=== PATIENT | female | born 1990 | race Caucasian/White ===

== ENCOUNTER 2021-05-09 06:23 | Inpatient (IN) ==
[2021-05-09] MEDS ORDERED: ANCEF 1 GRAM IV PREMIX* 0 G/0 ML BAG IV ONE (06:41)
[2021-05-09] MEDS ORDERED: LR 1,000 ML IV 1,000 ML IV ONE ×3 (06:41→10:00)
[2021-05-09] MEDS ORDERED: ProvayBLUE 0.5% ONE (06:46)
[2021-05-09] MEDS ORDERED: BETADINE SOLN ONE (06:47)
[2021-05-09 06:58] VITALS: BMI 35.4
[2021-05-09] MEDS ORDERED: BRIDION ONE (07:26)
[2021-05-09] MEDS ORDERED: OFIRMEV IV 1000 MG VIAL 1,000 MG/100 ML VIAL IV ONE (07:27)
[2021-05-09] MEDS ORDERED: PEPCID 20 MG IV PREMIX* 50 ML IV ONE (07:27)
[2021-05-09] MEDS ORDERED: DILAUDID INJ ONE (07:27)
[2021-05-09] MEDS ORDERED: FENTANYL VIAL INJ 100 mcg ONE (07:27)
[2021-05-09] MEDS ORDERED: ZEMURON 50 MG VIAL ONE (07:28)
[2021-05-09] MEDS ORDERED: DECADRON INJ ONE (07:28)
[2021-05-09] MEDS ORDERED: TORADOL 30 MG VIAL ONE (07:28)
[2021-05-09] MEDS ORDERED: ANCEF 1 GRAM IV PREMIX* 1 G/50 ML BAG IV ONE (07:37)
[2021-05-09 08:00] LABS: SERUM PREGNANCY TEST, QUAL NEGATIVE <10 mIU/mL
[2021-05-09] MEDS ORDERED: VERSED ONE (08:03)
[2021-05-09] MEDS ORDERED: KETALAR ONE (08:03)
[2021-05-09] MEDS ORDERED: ULTANE GAS IN ONE (08:03)
[2021-05-09] MEDS ORDERED: XYLOCAINE 2 % (PLAIN) ONE (08:03)
[2021-05-09] MEDS ORDERED: ZOFRAN INJ 4 MG VIAL ONE (08:03)
[2021-05-09] MEDS ORDERED: DIPRIVAN VIAL ONE (08:03)
[2021-05-09] MEDS ORDERED: LACRI-LUBE S.O.P. ONE (08:03)
[2021-05-09] MEDS ORDERED: ROBINUL ONE (08:03)
[2021-05-09 08:34] LABS: APPEARANCE,URINE CLEAR (CLEAR); BILIRUBIN,URINE NEGATIVE (NEGATIVE); BLOOD/HEMOGLOBIN,URINE NEGATIVE (NEGATIVE); COLOR,URINE YELLOW (YELLOW); GLUCOSE, URINE NEGATIVE (NEGATIVE); KETONES,URINE NEGATIVE (NEGATIVE); LEUKOCYTE ESTERASE ,URINE NEGATIVE (NEGATIVE); NITRITES,URINE NEGATIVE (NEGATIVE); PROTEIN,URINE 2+ (NEGATIVE); UROBILINOGEN,URINE NORMAL (NORMAL)
[2021-05-09 08:45] LABS: AMORPHOUS SEDIMENT,UR TRACE /HPF (NEGATIVE); BACTERIA,URINE NEGATIVE /HPF (NEGATIVE); MUCUS,URINE FEW /HPF (NEGATIVE); SQUAMOUS EPITHELIAL CELL,UR RARE /HPF (NEGATIVE)
[2021-05-09] MEDS ORDERED: BARHEMSYS INJ IVP PRN (09:05)
[2021-05-09] MEDS ORDERED: PHENERGAN INJ 25 MG IM PRN ×2 (09:05→10:21)
[2021-05-09] MEDS ORDERED: BENADRYL INJ 50 MG VIAL IVP PRN ×2 (09:05→10:17)
[2021-05-09] MEDS ORDERED: DILAUDID INJ IVP PRN (09:05)
[2021-05-09] MEDS ORDERED: TORADOL 30 MG VIAL IVP PRN (10:17)
[2021-05-09] MEDS ORDERED: ZOFRAN INJ 4 MG VIAL IVP PRN (10:23)
[2021-05-09] MEDS ORDERED: NS IRRIGATION* 1,000 ML ONE (10:30)
[2021-05-09] MEDS ORDERED: D5 1/2 NS 1,000 ML 1,000 ML IV SCH (11:00)
--- OUTSIDE RECORDS SUMMARY | 2021-05-09 11:11 | XMS | Continuity of Care Document ---
:1990 Author Name Plasterer Helper, System Address Unavailable Unavailable , Care Team Providers Name Role Phone No, PCP Unavailable Unavailable Sal Nava, Cole Lang Unavailable Vigil Unavailable Unavailable Unavailable Unavailable Problems Name Dates Details Abortions/Miscarriages Comments: 0. Status: Active Anxiety Disorder Status: Active Delivery Mode Comments: c-sectionl argest baby 6 lb 2 oz Status: Active Endometriosis (N80.9, 617.9) Comments: S he has had 2 and a long hx of endometriosis. We attempted to try Lupron but could not get her approved for this drug and now she is requesting an hysterectomy/BSO through a [facility]. The risk/bene fits have been reviewed to include but not limited to bowel/bladder and pelvic organ injury. We are planning on 6 months without E2 replacement to aid with endometriosis control laurent or to replacement. We will give add-back tx during the mean-time. Status: Active High blood pressure Status: Active Hypercholesterolemia Status: Active Living Children (Number Of) Comments: 2. Status: Active Migraine Headache Status: Active Non-Hodgkin lymphoma in remission (C85.90, 202.80) Status: Active Other disease, cancer, significant illness Status: Active Pelvic pain in female (R10.2, 625.9) Sta tus: Active Pregnancies () Comments: 2. Status: Active Comments: 1. 36 w 6 d Status: Active Screening mammogram, encounter for (Emily med from Encounter for screening mammogram for malignant neoplasm of breast) (Z12.31, V76.12) Status: Active Term Comments: 1. Status: Active Medications Name Dates Details Citalopram Hydrobromide 20 MG Oral Tablet Active daily (20 MG) hydroCHLOROthiazide 25 MG Oral Tablet Ac tive daily (25 MG) Pantoprazole Sodium 20 MG Oral Tablet Delayed Release Active daily (20 MG) Singulair 10 MG Oral Tablet Active daily (10 MG) Lupron Depot (1-Month) 3.75 MG Intramusc ular Kit 1 (one) Kit once monthly for 30 days Quantity: 1 Kit Refills: 5 Ordered:04-May-2021 Start : 01-Mar-2021 End : 04-May-2021 Inactive Lupron Depot (3-Month) 11.25 MG Intramuscular Kit 1 (one) Kit one time dose for 1 days Quantity: 1 Kit Refills: 1 Ordered:04-May-2021 Start : 22-Feb-2021 End : 04-May-2021 Inactive Norethindrone Acetate 5 MG Oral Tablet 1 (one) Tablet daily for 90 days Quantity: 90 {Tablet} Refills: 1 Ordered:04-May-2021 Start : 22-Feb-2021 End : 04-May-2021 Inactive Allergies and Adverse Reactions Name Dates Details No Known Drug Allergies (Allergy) Onset: 17-Feb-2021 Status : Active Procedures Procedure Dates Details BLOOD DRAW, VENIPUNCTURE ([id number]) Date: 02-May-2021 Complet ed 02-May-2021 ([id number]) Section - 2 Completed Gallbladder Surgery - Laparoscopic Compl eted Pap Smear Completed Comments: Normal. Ju 2020 Tubal Ligation Completed Family History Unknown Family Member Name Dates Details Asthma Comments: Daughter. Status: Active Diabetes Mellitus Comments: Mother. Status: Active Heart Disease Comments: Father. Status: Active Heart disease in male family member before age 55 Status: Active Hypercholesterolemia Comments: Father. M other. Status: Active Hypertension Comments: Father. Mo ther. Status: Active Migraine Headache Comments: Mother. Status: Active Severe allergy Comments: Daughter. Status: Active Social History Name Dates Details Caffeine use: Coffee. Carbonated beverages. 3 servings/day. Status: Active Exercise: Inactive. Status: Active No alcohol use Status: Active No drug use Status: Active Seat Belt Use: Always uses seat belts. S tatus: Active Tobacco / smoke exposure: None. Status: Active Vital Signs Date Test Result Details :19 Body temperature 98 f Comments: Meth od: Oral Heart Rate 90 /min Comments: Pattern: R egular Respiratory rate 20 /min Comments: Pattern: U nlabored O2 SAT 98 % Comments: Room air Systolic blood pressure 129 mm[Hg] Comments: Patien t Position: Sitting; Cuff Location: Left Arm; Cuff Size: Standard Diastolic blood pressure 75 mm[Hg] Comments: Patie nt Position: Sitting; Cuff Location: Left Arm; Cuff Size: Standard Weight 200 lb Body height 63 in Body mass index (BMI) [Ratio] 35.43 kg/m2 Body surface area Derived from formula 1.93 m2 :04 Body temperature 97.6 f Comments: Meth od: Oral Heart Rate 76 /min Comments: Pattern: R egular Respiratory rate 20 /min Comments: Pattern: U nlabored O2 SAT 98 % Comments: Room air Systolic blood pressure 124 mm[Hg] Comments: Patien t Position: Sitting; Cuff Location: Left Arm; Cuff Size: Standard Diastolic blood pressure 73 mm[Hg] Comments: Patie nt Position: Sitting; Cuff Location: Left Arm; Cuff Size: Standard Weight 198.125 lb Body height 63 in Body mass index (BMI) [Ratio] 35.10 kg/m2 Body surface area Derived from formula 1.93 m2 :30 Body temperature 98.2 f Comments: Metho d: Oral Heart Rate 81 /min Comments: Pattern: R egular Respiratory rate 20 /min Comments: Pattern: U nlabored O2 SAT 99 % Comments: Room air Systolic blood pressure 129 mm[Hg] Comments: Patien t Position: Sitting; Cuff Location: Left Arm; Cuff Size: Standard Diastolic blood pressure 82 mm[Hg] Comments: Patie nt Position: Sitting; Cuff Location: Left Arm; Cuff Size: Standard Weight 199 lb Body height 63 in Body mass index (BMI) [Ratio] 35.25 kg/m2 Body surface area Derived from formula 1.93 m2 Results Date Description Value Details No Result Information Available Plan of Care Name Dates Details Instructions Uterus Removal, Abdominal (Hysterectomy) *: abdominal hysterectomy Start: 04-May-2021 Instruction Type: Patient Education Indication: Pelvic pain in female Laparoscopy for Chronic Pelvic Pain: diagnostic laparoscopy Start: 22-Feb-2021 Instruction Type: Patient Education Indication: Pelvic pain in female Endometriosis: endometriosis Start: 17-Feb-2021 Instructio n Type: Patient Education Indication: Pelvic pain in female Planned Observations METABOLIC PANEL, COMPREHENSIVE ([id number])Indication: Endo metriosis On: :51 Request CBC, PLATELETS & AUT DIFF ([id number])Indication: Endometriosis O n: :51 Request Planned Procedures OOPHORECTOMY, BILATERAL ([id number])By: September On: 021 Intent TOTAL ABDOMINAL HYSTERECTOMY (CORPUS AND CERVIX), WITH OR On : 04-May-2021 Intent WITHOUT REMOVAL OF TUBE(S), WITH OR WITHOUT REMOVAL OF OVARY(S); ([id number])By: YaritzaSeptember SCREENING MAMMOGRAPHY OF BOTH BREASTS ([id number])By: Mirella Huang Sr n: 17-Feb-2021 Intent Cole Lang Instructions Name Dates Details Follow MineWhat Start: 04-May-2021 Instruction Type: P atient Education Indication: Pelvic pain in female How to Access Health Information Online using Patient Portal and [employer]rd [employer] Apps Start: 04-May-2021 Instruction Type: Patient Education Indication: Pelvic pain in female Verified Opioid Agreement Start: 22-Feb-2021 Instruction T ype: Provider Instructions for Treatment Indication: Pelvic pain in female Follow MineWhat Start: 22-Feb-2021 Instruction Type: P atient Education Indication: Pelvic pain in female How to Access Health Information Online using Patient Portal and [employer] Apps Start: 22-Feb-2021 Instruction Type: Patient Education Indication: Pelvic pain in female Verified Opioid Agreement Start: 17-Feb-2021 Instruction T ype: Provider Instructions for Treatment Indication: Pelvic pain in female Follow MineWhat Start: 17-Feb-2021 Instruction Type: P atient Education Indication: Pelvic pain in female How to Access Health Information Online using Patient Portal and [employer] Apps Start: 17-Feb-2021 Instruction Type: Patient Education Indication: Pelvic pain in female Encounters Review On: 09-May-2021 10:59 [facility] Office Visit On: 04-May-2021 13:00 Encounter Diagnosis: Endometriosis, Pelvic pain in fem dorie End: 04-May-2021 13:52 [facility] Nurse Ordered Procedures/Labs On: 04-May-2021 13:00 Encounter Diagnosis: Endometriosis End: 04-May-2021 14 :02 [facility] Nurse Visit On: 02-May-2021 9:00 Encounter Diagnosis: Endometriosis End: 03-May-2021 15 :14 [facility] Prescribed On: 01-Mar-2021 8:59 Encounter Diagnosis: Endometriosis End: 01-Mar-2021 9: 10 [facility] Office Visit On: 22-Feb-2021 10:00 Encounter Diagnosis: Pelvic pain in female, Endometrio sis End: 22-Feb-2021 10:40 [facility] Office Visit On: 17-Feb-2021 10:00 Encounter Diagnosis: Pelvic pain in fema le, Screening mammogram, encounter for (Renamed from Encounter for screening mammogram for malignant neoplasm of breast), Non-Hodgkin lymphoma in remission End: 17-Feb-2021 11:11 [facility] Payers [employer] of [place]; a guarantor
[2021-05-09] MEDS: LR 1,000 ML IV 1,000 ML IV SCH ×3 (12:20→22:22)
[2021-05-09] MEDS: TORADOL 30 MG VIAL IVP SCH ×3 (12:34→23:18)
[2021-05-09] MEDS: ZOFRAN INJ 4 MG VIAL IVP PRN (19:28)
[2021-05-09] MEDS: PERCOCET TAB 5/325 MG PO PRN (19:28)
[2021-05-10] MEDS: PERCOCET TAB 5/325 MG PO PRN ×2 (01:52→21:50)
[2021-05-10] MEDS: LR 1,000 ML IV 1,000 ML IV SCH ×2 (04:40→11:11)
[2021-05-10] MEDS: TORADOL 30 MG VIAL IVP SCH (05:16)
[2021-05-10 06:18] LABS: BASOPHILS % (AUTO) 0.3 % (0.2-1.0); HEMATOCRIT 37.2 % (36.0-47.0); HEMOGLOBIN 12.7 g/dL (12.0-16.0); LYMPHOCYTES # (AUTO) 1.5 X10^3/uL (1.3-2.9); LYMPHOCYTES % (AUTO) 9.9 % (21.0-51.0); MEAN CORPUSCULAR HEMOGLOBIN 27.8 pg (27.0-34.0); MEAN CORPUSCULAR HGB CONC 34.2 g/dL (33.0-35.0); MEAN CORPUSCULAR VOLUME 81.2 fL (80.0-100.0); MEAN PLATELET VOLUME 8.1 fL (7.4-11.0); MONOCYTES # (AUTO) 1.2 x10^3/uL (0.3-0.8); MONOCYTES % (AUTO) 7.9 % (0.0-13.0); NEUTROPHILS # (AUTO) 12.6 x10^3/uL (2.2-4.8); NEUTROPHILS % (AUTO) 81.9 % (42.0-75.0); PLATELET COUNT 268 X10^3/uL (150.0-450.0); RED BLOOD COUNT 4.58 X10^6/uL (3.5-5.4); RED CELL DISTRIBUTION WIDTH 13.9 % (11.6-16.5); WHITE BLOOD COUNT 15.4 X10^3/uL (3.6-10.0)
[2021-05-10 06:27] LABS: BLOOD UREA NITROGEN 19 mg/dL (7-18); CALCIUM 8.2 mg/dL (8.5-10.1); CARBON DIOXIDE 28.5 mmol/L (21-32); CHLORIDE 104 mmol/L (98-107); CREATININE 1.95 mg/dL (0.55-1.02); SODIUM 141 mmol/L (136-145); eGFR NON BLACK RACES 32 (>60)
[2021-05-10] MEDS ORDERED: K-DUR TAB 20 MEQ PO PRN (07:30)
[2021-05-10] MEDS ORDERED: MICRO K EXTEN CAP 10 MEQ PO PRN (07:30)
[2021-05-10] MEDS ORDERED: POTASSIUM CHL 40 MEQ/NS 0.45% 500 ML IV PRN (07:30)
[2021-05-10] MEDS ORDERED: POTASSIUM CHL 60 MEQ/NS 0.45% 500 ML IV PRN (07:30)
[2021-05-10] MEDS ORDERED: K-RIDER 10 MEQ/NS 100 ML 10 MEQ/100 ML BAG IV PRN (07:30)
[2021-05-10] MEDS ORDERED: POTASSIUM CHLORIDE LIQ 20 MEQ UDC PO PRN (07:30)
[2021-05-10] MEDS ORDERED: KLOR-CON PO PRN (07:30)
--- NOTE | 2021-05-10 08:27 | NOTE.PGOBP ---
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 Tolerating regular diet. No N/V. Ambulating well. Harper draining well. Pain well controlled by toradol and percocet. Objective Data Result Diagrams: 05/10/21 05:45 05/10/21 05:45 Objective Data: CV= RRR no MRG Lungs=CTA Bilaterally occ. cough Abd=(+) BS, soft, ND, appropriately tender near incision. Bandage removed. Incision clean/dry/intact, no erythema, no bleeding, no discharge. Dermabond/Stitches intact. Ext= No edema, NT, No Cords. Graduated Compression Stockings/Sequential Compression Devices Bilaterally. Plan (1) Pelvic pain in female: (2) Endometriosis: (3) Status post hysterectomy with oophorectomy: (4) Elevated WBC count: Plan: check Covid test. She has had both vaccines. We will watch her closely.
[2021-05-10] MEDS: LOVENOX INJ 40 MG SYR SC SCH (08:39)
[2021-05-10] MEDS: ZOFRAN INJ 4 MG VIAL IVP PRN ×2 (09:11→18:27)
[2021-05-10] MEDS ORDERED: TORADOL 30 MG VIAL IM PRN (10:15)
[2021-05-10] MEDS: TORADOL 30 MG VIAL IVP PRN ×2 (12:15→18:27)
[2021-05-10 15:01] LABS: BASOPHILS % (AUTO) 0.4 % (0.2-1.0); EOSINOPHILS % (AUTO) 0.1 % (0.9-2.9); HEMATOCRIT 34.9 % (36.0-47.0); HEMOGLOBIN 11.9 g/dL (12.0-16.0); LYMPHOCYTES # (AUTO) 1.5 X10^3/uL (1.3-2.9); LYMPHOCYTES % (AUTO) 13.8 % (21.0-51.0); MEAN CORPUSCULAR HGB CONC 34.1 g/dL (33.0-35.0); MEAN PLATELET VOLUME 8.2 fL (7.4-11.0); MONOCYTES # (AUTO) 0.9 x10^3/uL (0.3-0.8); MONOCYTES % (AUTO) 8.5 % (0.0-13.0); NEUTROPHILS # (AUTO) 8.6 x10^3/uL (2.2-4.8); NEUTROPHILS % (AUTO) 77.2 % (42.0-75.0); PLATELET COUNT 200 X10^3/uL (150.0-450.0); RED BLOOD COUNT 4.25 X10^6/uL (3.5-5.4); RED CELL DISTRIBUTION WIDTH 13.7 % (11.6-16.5); WHITE BLOOD COUNT 11.1 X10^3/uL (3.6-10.0)
[2021-05-10] MEDS ORDERED: TYLENOL 325 MG TAB PO PRN (15:32)
[2021-05-11] MEDS: PERCOCET TAB 5/325 MG PO PRN (05:14)
[2021-05-11] MEDS: ZOFRAN INJ 4 MG VIAL IVP PRN (05:22)
[2021-05-11 06:21] LABS: BASOPHILS % (AUTO) 0.3 % (0.2-1.0); EOSINOPHILS # (AUTO) 0.1 x10^3/uL (0.0-0.2); EOSINOPHILS % (AUTO) 0.7 % (0.9-2.9); HEMATOCRIT 34.6 % (36.0-47.0); HEMOGLOBIN 11.7 g/dL (12.0-16.0); LYMPHOCYTES # (AUTO) 1.5 X10^3/uL (1.3-2.9); LYMPHOCYTES % (AUTO) 18.5 % (21.0-51.0); MEAN CORPUSCULAR HEMOGLOBIN 28.1 pg (27.0-34.0); MEAN CORPUSCULAR HGB CONC 33.9 g/dL (33.0-35.0); MEAN CORPUSCULAR VOLUME 82.8 fL (80.0-100.0); MEAN PLATELET VOLUME 8.1 fL (7.4-11.0); MONOCYTES # (AUTO) 0.9 x10^3/uL (0.3-0.8); MONOCYTES % (AUTO) 10.5 % (0.0-13.0); NEUTROPHILS # (AUTO) 5.8 x10^3/uL (2.2-4.8); PLATELET COUNT 206 X10^3/uL (150.0-450.0); RED BLOOD COUNT 4.18 X10^6/uL (3.5-5.4); RED CELL DISTRIBUTION WIDTH 14.3 % (11.6-16.5); WHITE BLOOD COUNT 8.3 X10^3/uL (3.6-10.0)
[2021-05-11 07:49] VITALS: BP 133/62
--- NOTE | 2021-05-11 07:55 | NOTE.PGOBP ---
Progress note MATERIAL HANDLING SUPERVISOR Post-op Subjective Data Subjective: No complaints, (+) flatus, no BM. Tolerating regular diet. No N/V. Ambulating well. Harper draining well. Pain well controlled by percocet. Objective Data Result Diagrams: 05/11/21 05:55 05/10/21 05:45 Objective Data: CV= RRR no MRG Lungs=CTA Bilaterally Abd=(+) BS, soft, ND, appropriately tender near incision. Bandage removed. Incision clean/dry/intact, no erythema, no bleeding, no discharge. Dermabond/Stitches intact. Ext= No edema, NT, No Cords. Graduated Compression Stockings/Sequential Compression Devices Bilaterally. Plan (1) Pelvic pain in female: (2) Endometriosis: (3) Status post hysterectomy with oophorectomy: (4) Elevated WBC count: Plan: WBC has returned to wnl without any fever. She is now requesting to go home. She will f/u in my office in 2 days.
[2021-05-11] MEDS: LOVENOX INJ 40 MG SYR SC SCH (08:24)
== END 2021-05-11 10:00 | disposition home or self-care (01) | DRG 743 ==
LOC: MED/SURG 06:23
PROVIDERS: ADMIT Obstetrics & Gynecology; ATTEND Obstetrics & Gynecology
DX: R10.2 Pelvic and perineal pain; Z20.822 Contact with and (suspected) exposure to COVID-19; D72.828 Other elevated white blood cell count; N73.6 Female pelvic peritoneal adhesions (postinfective); N80.8 Other endometriosis; R94.4 Abnormal results of kidney function studies